=== PATIENT | male | born 1995 | race Caucasian/White ===

== ENCOUNTER 2018-11-07 20:14 | Emergency (ER) | payer OTHER ==
[~2018-11-07] VITALS: Ht 180.3 cm; Wt 81.6 kg
[2018-11-07 20:16] VITALS: BP 120/90
--- NOTE | 2018-11-07 20:16 | NUR ---
TO BED # 09 AMBULATORY
--- NOTE | 2018-11-07 20:30 | NUR ---
PT BIB FRIEND C/O RIGHT SHOULD AND NECK PAIN. PT STATES INTERMITTENT SHARP 7/10 PAIN X1 MONTH, DENIES INJURY OR TRAUMA. PT STATES SLIGHT CHEST DISCOMFORT W/ INSPIRATION AND EXPIRATION. PT DENIES N/V/D. ER MD AWARE OF PT STATUS. WILL CONTINUE TO MONITOR. PMH: DENIES RX: ADVIL X3 HOURS AGO W/O RELIEF
--- NOTE | 2018-11-07 20:32 | NUR ---
Dr. Mendoza evaluating patient at bedside.
[2018-11-07] MEDS ORDERED: KETOROLAC 60 MG/2 ML VIAL IM ONE (20:35)
--- NOTE | 2018-11-07 20:53 | NUR ---
X-RAY AT BEDSIDE.
[2018-11-07 21:37] VITALS: BP 120/90
--- NOTE | 2018-11-07 21:37 | NUR ---
Patient discharged with v/s stable. Written and verbal after care instructions given and explained. Patient alert, oriented and verbalized understanding of instructions. Ambulatory with steady gait. All questions addressed prior to discharge. ID band removed. Patient advised to follow up with PMD. Rx of ROBAXIN, MOTRIN given. Patient educated on indication of medication including possible reaction and side effects. Opportunity to ask questions provided and answered.
== END 2018-11-07 21:37 | disposition home or self-care (01) ==
LOC: MED 20:14
DX: S16.1XXA Strain of muscle, fascia and tendon at neck level, initial encounter (principal); X58.XXXA Exposure to other specified factors, initial encounter; Y93.01 Activity, walking, marching and hiking; Y92.89 Other specified places as the place of occurrence of the external cause; Y99.8 Other external cause status
CPT/HCPCS: 71045; 72040; 96372; 99283; J1885; Q0092